=== PATIENT | female | born 1975 | race Caucasian/White ===

== ENCOUNTER 2024-04-25 12:40 | Emergency (ER) | payer OTHER, SELFPAY ==
[2024-04-25 12:42] VITALS: BP 129/73
--- NOTE | 2024-04-25 12:56 | ED.GENMED ---
History of Present Illness
General
Chief Complaint: Fall
Time Seen by Provider: 04/25/24 12:43
Travel History
Have you had any contact with someone who has COVID-19?: No
Do you have any symptoms of coronavirus? Fever > 100 degrees, chills, cough, shortness of breath, sore throat, loss of taste or smell, muscle aches, or headache?: No
History of Present Illness
History of Present Illness:
49 yo female presents to the Emergency Department via EMS for evaluation of severe R hip/gluteal pain after a near fall. Reports she slipped on water outside her shower, the R hip was fully flexed with the R knee extended. She was able to catch
herself before falling to the ground. Lowered herself down due to pain, was unable to get up. EMS administered 15mg IV ketorolac w/ modest improvement.
Past History
Past History
ED Past Medical History: None
ED Past Surgical History:
Social History
Tobacco: Non-smoker
Personal:
Living: with family
Employment: Not employed
Review of Systems
Review of Systems
Allergies reviewed?: Yes
All Other Systems: ROS reviewed and negative except as documented in HPI and ROS
Phy Exam
Physical Exam
Physical Exam:
GEN: Well appearing, NAD, WDWN
HEENT: Oral mucosa moist, no scleral icterus
Cardiac: Regular rate
Lung: No respiratory distress, no tachypnea
MSK: No gross deformity or injuries. R hip PROM normal without pain. No gross deformity. Grossly non tender to palpation
Skin: Good color, no pallor or jaundice, no rashes
Neuro: AO x3, moves all extremities freely
Psych: Calm, cooperative
Course
Orders/Labs/Results
Orders:
Orders
04/25/24 12:46
CR Hip - RT w/wo Pel 2-3 Vw* Urgent
Comment:
Reason For Exam: fall, R hip injury
Include a pelvis x-ray?: Yes
04/25/24 14:10
Crutches-Treatment ONCE
Vital Signs
Initial and Last Documented VS:
Initial Vital Signs
Temp Pulse Resp BP Pulse Ox
97.8 F 72 18 129/73 99
04/25/24 12:42 04/25/24 12:42 04/25/24 12:42 04/25/24 12:42 04/25/24 12:42
Last Documented Vital Signs
Temp Pulse Resp BP Pulse Ox
97.8 F 72 18 129/73 99
04/25/24 12:42 04/25/24 12:42 04/25/24 12:42 04/25/24 12:42 04/25/24 12:42
MDM/Problems Addressed
MDM/Problems Addressed:
XR of the hip and pelvis is negative independently interpreted by me. She was able to ambulate independently after NSAIDs. likely hip extensor strain/hamstring strain, discussed supportive care
*Critical Care Note
Total Time (30-74mins, 75-104mins- exclusive of procedures): Not Applicable
ED Attending Note
-
Portions of this chart may have been created with voice recognition software.� Occasional wrong word or��sound alike� substitutions may have occurred due to the inherent limitations of voice recognition software.
Discharge Plan
Departure
Patient Disposition: Home (Routine Discharge)
Date of Disposition: 04/25/24
Time of Disposition: 13:55
Patient with high blood pressure during this ER visit?: No
Discharge Problem:
Strain of muscle of right hip
Instructions: Muscle Strain ED
Prescriptions:
New
diclofenac sodium 75 mg tablet,delayed release (DR/EC)
75 mg PO BID PRN (Reason: Pain) Qty: 20 0RF
Referrals:
Jazlyn Terry CRNP [Family Provider] -
Christiano Rothman MD [Active] -
Interventions
Interventions:
*Risk Screen - Suicide Last Done: 04/25/24 12:46
*General Assessment Last Done: 04/25/24 12:46
*Neglect/Abuse Screening Last Done: 04/25/24 12:46
ED- Fall Risk Assessment Last Done: 04/25/24 12:46
*ED COVID-19 Vaccine History Last Done: 04/25/24 12:46
*Nursing Disposition Last Done: 04/25/24 14:11
ED-Musculoskeletal Assessment Last Done: 04/25/24 12:44
ED- Neurological Assessment Last Done: 04/25/24 12:45
ED-Skin Assessment Last Done: 04/25/24 12:45
Discharge Date and Time
Discharge Date/Time: 04/25/24 14:14
Print Language: SLOVENIAN
== END 2024-04-25 14:14 | disposition home or self-care (01) ==
LOC: EMR 12:40
PROVIDERS: EMERGENCY PHYSICIAN Emergency Medicine; FAMILY PHYSICIAN Nurse Practitioner
DX: S76.011A Strain of muscle, fascia and tendon of right hip, initial encounter (principal); X50.1XXA Overexertion from prolonged static or awkward postures, initial encounter; Y93.89 Activity, other specified
CPT/HCPCS: 99283; 73502